=== PATIENT | female | born 1980 | race Caucasian/White ===

== ENCOUNTER → 2016-11-27 | Outpatient (CLI) | payer OTHER ==
[2016-11-27 04:45] LABS: HEMOGLOBIN 13.4 gm/dl (12.3-15.3); RED BLOOD COUNT 4.82 M/UL (4.00-5.10); WHITE BLOOD COUNT 7.6 K/UL (4.5-11.0)
[2016-11-27 05:08] LABS: BUN/CREATININE RATIO 16 (0-10)
== END ==
LOC: LAB 04:00
PROVIDERS: Nurse Practitioner Family
DX: K21.9 Gastro-esophageal reflux disease without esophagitis (principal); E87.6 Hypokalemia; E55.9 Vitamin D deficiency, unspecified
CPT/HCPCS: 36415; 80053; 80061; 85025

== ENCOUNTER → 2016-12-16 | Outpatient (CLI) | payer OTHER | LOC: MAMO 13:52 | DX: Z12.31 Encounter for screening mammogram for malignant neoplasm of breast (principal); M77.32 Calcaneal spur, left foot; N64.4 Mastodynia; M79.89 Other specified soft tissue disorders | CPT/HCPCS: 73630; G0202 ==

== ENCOUNTER 2020-10-11 12:39 | Emergency (ER) | payer OTHER ==
[~2020-10-11 12:39] MED LIST: NAPROSYN500 MG PO; OMNICEF 300 MG300 MG PO; ZOFRAN4 MG PO
[2020-10-11] MEDS ORDERED: NAPROSYN500 MG PO (15:14)
[2020-10-11] MEDS ORDERED: CYCLOBENZAPRINE10 MG PO (15:14)
== END 2020-10-11 15:21 | disposition home or self-care (01) ==
LOC: ER1 12:39
DX: S29.012A Strain of muscle and tendon of back wall of thorax, initial encounter (principal); S46.912A Strain of unspecified muscle, fascia and tendon at shoulder and upper arm level, left arm, initial encounter; I10 Essential (primary) hypertension; Z88.5 Allergy status to narcotic agent; Z88.8 Allergy status to other drugs, medicaments and biological substances; V49.40XA Driver injured in collision with unspecified motor vehicles in traffic accident, initial encounter; Y92.410 Unspecified street and highway as the place of occurrence of the external cause
CPT/HCPCS: 71045; 72072; 73030; 96372; 99283; J1885

== ENCOUNTER → 2021-01-31 | Outpatient (CLI) | payer OTHER ==
[~2021-01-31] MED LIST changes: +CETIRIZINE HCL10 MG PO; +CYCLOBENZAPRINE10 MG PO; +FLONASE ALLER15.8 ML; +GABAPENTIN300 MG PO; +IBU800 MG PO; +LOSARTAN POTASS50 MG PO; +OMEPRAZOLE40 MG PO; +POTASSIUM CHLO10 MEQ PO; +SUMATRIPTAN SU100 MG PO; +TIZANIDINE HCL4 MG PO; +TOPAMAX50 MG PO; +TRIAMTERENE-HC1 EAC1 PO; +TYLENOL EXTRA500 MG PO; +WELLBUTRIN XL300 MG PO; +XANAX0.5 MG PO
== END ==
LOC: RAD 12:39
DX: M54.6 Pain in thoracic spine (principal)
CPT/HCPCS: 72072

== ENCOUNTER 2021-03-12 21:08 | Emergency (ER) | payer OTHER ==
[~2021-03-12 21:08] MED LIST changes: -CETIRIZINE HCL10 MG PO; -FLONASE ALLER15.8 ML; -GABAPENTIN300 MG PO; -IBU800 MG PO; -LOSARTAN POTASS50 MG PO; -OMEPRAZOLE40 MG PO; -POTASSIUM CHLO10 MEQ PO; -SUMATRIPTAN SU100 MG PO; -TIZANIDINE HCL4 MG PO; -TOPAMAX50 MG PO; -TRIAMTERENE-HC1 EAC1 PO; -TYLENOL EXTRA500 MG PO; -WELLBUTRIN XL300 MG PO; -XANAX0.5 MG PO
[2021-03-13 00:43] LABS: HEMOGLOBIN 15.8 gm/dl (12.3-15.3); RED BLOOD COUNT 5.62 M/UL (4.00-5.10); WHITE BLOOD COUNT 3.2 K/UL (4.5-11.0)
== END 2021-03-13 03:00 | disposition home or self-care (01) ==
LOC: ER1 21:08
PROVIDERS: Physician Assistant
DX: U07.1 COVID-19 (principal); E87.6 Hypokalemia; Z90.49 Acquired absence of other specified parts of digestive tract; Z90.89 Acquired absence of other organs; Z88.5 Allergy status to narcotic agent; Z88.8 Allergy status to other drugs, medicaments and biological substances
CPT/HCPCS: 80053; 85025; 96372; 99283; J1885; U0002

== ENCOUNTER 2021-03-14 17:56 | Inpatient (IN) | payer OTHER, MEDICAID ==
[~2021-03-14] VITALS: Ht 170.2 cm; Wt 148.0 kg
[2021-03-14 21:28] LABS: HEMOGLOBIN 15.2 gm/dl (12.3-15.3); RED BLOOD COUNT 5.45 M/UL (4.00-5.10); WHITE BLOOD COUNT 3.7 K/UL (4.5-11.0)
[2021-03-15 07:24] LABS: HEMOGLOBIN 13.1 gm/dl (12.3-15.3); RED BLOOD COUNT 4.98 M/UL (4.00-5.10)
[2021-03-15] MEDS ORDERED: GABAPENTIN300 MG PO (12:21)
[2021-03-15] MEDS ORDERED: XANAX0.5 MG PO (12:21)
[2021-03-15] MEDS ORDERED: TIZANIDINE HCL4 MG PO (12:22)
[2021-03-15] MEDS ORDERED: WELLBUTRIN XL300 MG PO (12:23)
[2021-03-15] MEDS ORDERED: OMEPRAZOLE40 MG PO (12:24)
[2021-03-15] MEDS ORDERED: LOSARTAN POTASS50 MG PO (12:24)
[2021-03-15] MEDS ORDERED: POTASSIUM CHLO10 MEQ PO (12:25)
[2021-03-15] MEDS ORDERED: SUMATRIPTAN SU100 MG PO (12:25)
[2021-03-15] MEDS ORDERED: TRIAMTERENE-HC1 EAC1 PO (12:26)
[2021-03-15] MEDS ORDERED: TOPAMAX50 MG PO (12:27)
[2021-03-15] MEDS ORDERED: IBU800 MG PO (12:27)
[2021-03-15] MEDS ORDERED: CETIRIZINE HCL10 MG PO (12:28)
[2021-03-15] MEDS ORDERED: TYLENOL EXTRA500 MG PO (12:29)
[2021-03-15] MEDS ORDERED: FLONASE ALLER15.8 ML (12:29)
[2021-03-16 05:46] LABS: HEMOGLOBIN 12.8 gm/dl (12.3-15.3); RED BLOOD COUNT 4.63 M/UL (4.00-5.10); WHITE BLOOD COUNT 3.4 K/UL (4.5-11.0)
[2021-03-17 03:58] LABS: HEMOGLOBIN 13.4 gm/dl (12.3-15.3); RED BLOOD COUNT 4.73 M/UL (4.00-5.10)
[2021-03-17 04:04] LABS: WHITE BLOOD COUNT 2.5 K/UL (4.5-11.0)
[2021-03-18 05:05] LABS: HEMOGLOBIN 13.1 gm/dl (12.3-15.3); RED BLOOD COUNT 4.69 M/UL (4.00-5.10)
[2021-03-18 09:51] LABS: BUN/CREATININE RATIO 23 (0-10)
[2021-03-19 05:29] LABS: HEMOGLOBIN 12.5 gm/dl (12.3-15.3); RED BLOOD COUNT 4.46 M/UL (4.00-5.10); WHITE BLOOD COUNT 6.1 K/UL (4.5-11.0)
[2021-03-19 06:07] LABS: BUN/CREATININE RATIO 33 (0-10)
[2021-03-20 04:11] LABS: HEMOGLOBIN 12.5 gm/dl (12.3-15.3); RED BLOOD COUNT 4.38 M/UL (4.00-5.10); WHITE BLOOD COUNT 5.7 K/UL (4.5-11.0)
[2021-03-20 04:35] LABS: BUN/CREATININE RATIO 46 (0-10)
[2021-03-21 05:01] LABS: RED BLOOD COUNT 4.37 M/UL (4.00-5.10)
[2021-03-21 05:06] LABS: WHITE BLOOD COUNT 9.2 K/UL (4.5-11.0)
[2021-03-21 07:03] LABS: BUN/CREATININE RATIO 48 (0-10)
[2021-03-21 12:23] LABS: ACINETOBACTER BAUMANNII Not Detected (Negative); CANDIDA ALBICANS Not Detected (Negative); CANDIDA KRUSEI Not Detected (Negative); CANDIDA TROPICALIS Not Detected (Negative); ENTEROCOCCUS Not Detected (Negative); ESCHERICHIA COLI Not Detected (Negative); HAEMOPHILUS INFLUENZAE Not Detected (Negative); KLEBSIELLA OXYTOCA Not Detected (Negative); KLEBSIELLA PNEUMONIAE Not Detected (Negative); KPC-CARBAPENEM-RESISTANCE GENE Not Detected (Negative); PROTEUS Not Detected (Negative); PSEUDOMONAS AERUGINOSA Not Detected (Negative); SERRATIA MARCESANS Not Detected (Negative); STAPHYLOCOCCUS AUREUS Not Detected (Negative); STREP AGALACTIAE (GROUP B) Not Detected (Negative); STREP PYOGENES (GROUP A) Not Detected (Negative); STREPTOCOCCUS Not Detected (Negative); vanA/B (VANCOMYCIN RESIST GENE Not Detected (Negative)
[2021-03-21 14:58] LABS: mecA (METHICILLIN RESIST GENE DETECTED (Negative)
[2021-03-21 14:59] LABS: STAPHYLOCOCCUS DETECTED (Negative)
[2021-03-22 05:27] LABS: HEMOGLOBIN 13.3 gm/dl (12.3-15.3); RED BLOOD COUNT 4.12 M/UL (4.00-5.10)
[2021-03-22 05:30] LABS: WHITE BLOOD COUNT 11.6 K/UL (4.5-11.0)
[2021-03-22 07:56] LABS: BUN/CREATININE RATIO 54 (0-10)
--- NOTE | 2021-03-22 16:10 | NUR ---
PT WAS PRONED AT 1545 O2 SAT DROPPED TO 76 WAS BACK UP TO 88 BY 1552
--- NOTE | 2021-03-22 16:11 | NUR ---
1430; TALKED WITH STAFF AT [facility] [place] STILL WAITING FOR A BED. NONE AVAILABLE AT THIS TIME
[2021-03-23 04:20] LABS: HEMOGLOBIN 13.6 gm/dl (12.3-15.3); RED BLOOD COUNT 4.27 M/UL (4.00-5.10)
[2021-03-23 04:24] LABS: WHITE BLOOD COUNT 22.2 K/UL (4.5-11.0)
[2021-03-23 06:16] LABS: BUN/CREATININE RATIO 47 (0-10)
[2021-03-24 05:41] LABS: RED BLOOD COUNT 4.65 M/UL (4.00-5.10)
[2021-03-24 05:50] LABS: WHITE BLOOD COUNT 47.5 K/UL (4.5-11.0)
[2021-03-24 05:51] LABS: HEMOGLOBIN 15.8 gm/dl (12.3-15.3)
[2021-03-24 11:58] LABS: BUN/CREATININE RATIO 44 (0-10)
[2021-03-24 12:30] LABS: HEMOGLOBIN 15.7 gm/dl (12.3-15.3)
== END 2021-03-25 08:29 | disposition expired | DRG 870 ==
LOC: ER1 17:56 → CCU 23:44 → CDU 23:44 → PROG CARE 03-15 12:37 → CCU 03-16 07:54
PROVIDERS: Internal Medicine; Internal Medicine Pulmonary Disease; Physician Assistant; ADMIT Internal Medicine
PROC: XW033E5 Introduction of Remdesivir Anti-infective into Peripheral Vein, Percutaneous Approach, New Technology Group 5 (ICD-10-PCS; 2021-03-15)
PROC: 8E0ZXY6 Isolation (ICD-10-PCS; 2021-03-15)
PROC: 3E0333Z Introduction of Anti-inflammatory into Peripheral Vein, Percutaneous Approach (ICD-10-PCS; 2021-03-15)
PROC: 5A09457 Assistance with Respiratory Ventilation, 24-96 Consecutive Hours, Continuous Positive Airway Pressure (ICD-10-PCS; 2021-03-15)
PROC: 3E033XZ Introduction of Vasopressor into Peripheral Vein, Percutaneous Approach (ICD-10-PCS; principal; 2021-03-16)
PROC: 5A1955Z Respiratory Ventilation, Greater than 96 Consecutive Hours (ICD-10-PCS; 2021-03-16)
PROC: 0BH18EZ Insertion of Endotracheal Airway into Trachea, Via Natural or Artificial Opening Endoscopic (ICD-10-PCS; 2021-03-16)
PROC: 05HM33Z Insertion of Infusion Device into Right Internal Jugular Vein, Percutaneous Approach (ICD-10-PCS; 2021-03-16)
DX: A41.89 Other specified sepsis (principal); R65.21 Severe sepsis with septic shock; J12.82 Pneumonia due to coronavirus disease 2019; N17.0 Acute kidney failure with tubular necrosis; K72.00 Acute and subacute hepatic failure without coma; J15.9 Unspecified bacterial pneumonia; J80 Acute respiratory distress syndrome; U07.1 COVID-19; J90 Pleural effusion, not elsewhere classified; E87.1 Hypo-osmolality and hyponatremia; E87.2 Acidosis; Z68.43 Body mass index [BMI] 50.0-59.9, adult; R74.01 Elevation of levels of liver transaminase levels; G43.909 Migraine, unspecified, not intractable, without status migrainosus; M51.36 Other intervertebral disc degeneration, lumbar region; R73.9 Hyperglycemia, unspecified; I10 Essential (primary) hypertension; E66.01 Morbid (severe) obesity due to excess calories; Z90.89 Acquired absence of other organs; K21.9 Gastro-esophageal reflux disease without esophagitis; Z66 Do not resuscitate; D70.9 Neutropenia, unspecified; E83.51 Hypocalcemia; Z90.49 Acquired absence of other specified parts of digestive tract; Z98.51 Tubal ligation status; Z98.890 Other specified postprocedural states; Z88.5 Allergy status to narcotic agent; Z88.8 Allergy status to other drugs, medicaments and biological substances; Z91.040 Latex allergy status; Z83.3 Family history of diabetes mellitus; Z83.6 Family history of other diseases of the respiratory system; Z82.49 Family history of ischemic heart disease and other diseases of the circulatory system; Z79.899 Other long term (current) drug therapy; Z79.2 Long term (current) use of antibiotics
CPT/HCPCS: ECHO; 31500; 36415; 36600; 71045; 80048; 80053; 82550; 82570; 82728; 82803; 83605; 83615; 83735; 84100; 84300; 85014; 85018; 85025; 85027; 85379; 85384; 85610; 85730; 86140; 86900; 86901; 86927; 87040; 87070; 87077; 87081; 87086; 87150; 87186; 87205; 93306; 94002; 94003; 94640; 94660; 94664; 94760; 96372; 99283; 99285; A6212; C9113; G0378; J0330; J0610; J0692; J1100; J1120; J1205; J1644; J1650; J1885; J1940; J2020; J2185; J2248; J2370; J2543; J2704; J3010; J3370; J3480; J7030; J7070; P9047; U0002